=== PATIENT | female | born 1965 | race Caucasian/White ===

== ENCOUNTER 2024-05-20 04:19 | Emergency (ER) | payer MEDICAID, SELFPAY ==
[2024-05-20 04:19] VITALS: BMI 44.8
--- NOTE | 2024-05-20 04:29 | XR_ITS ---
Examination: PA lateral chest 2 views Technique: Upright PA lateral chest 2 views Exam date and time: February 19, 2024 0435 hrs. Comparison June 20, 2023 Indications: Coughing beginning 5 days ago post antibiotic therapy worse today Findings: Mild pneumonia left base Right lung clear Intact osseous structures Impression: Mild pneumonia left base
--- NOTE | 2024-05-20 04:29 | PD.EDRME ---
Rapid Medical Screening Exam RME Arrival date/time: 05/20/24 04:19 58 year old female present to Ed for c/o of Flu like sx. I have greeted and performed a focused initial assessment of this patient. A comprehensive ED assessment and evaluation of the patient, analysis of all test results, and completion of the medical decision making process will be conducted by additional ED providers. Chief Complaint: Flu Like Symptoms Time Seen by Provider: 05/20/24 04:22
[2024-05-20 04:55] VITALS: BP 140/89; PULSE 86; RESP 18; TEMP 37.9; O2SAT 95
[2024-05-20 05:45] LABS: Basophils % (Auto) 0 % (0-2.5); Eosinophils % (Auto) 1 % (0-10); Hematocrit 39.3 % (36.0-46.0); Immature Granulocytes % (Auto) 0 % (0-0); Immature Granulocytes Auto 0.01 Thou/mm3 (0.00-0.00); Lymphocytes # (Auto) 1.9 Thou/mm3 (1.0-4.8); Lymphocytes % (Auto) 45 % (10-50); Mean Corpuscular HGB Conc 33.1 g/dl (31.0-37.0); Mean Corpuscular Hemoglobin 31.9 pg (25.0-35.0); Mean Corpuscular Volume 97 fL (80-100); Monocytes # (Auto) 0.4 Thou/mm3 (0.0-0.8); Monocytes % (Auto) 10 % (0-12); Neutrophils # (Auto) 1.8 Thou/mm3 (1.8-7.7); Neutrophils % (Auto) 44 % (37-80); Nucleated Red Blood Cell % 0 /100 WBC (0); Platelet Count 151 Thou/mm3 (140-440); RDW Standard Deviation 49.1 fL (36.4-46.3); Red Blood Count 4.07 Miln/mm3 (4.00-5.20); White Blood Count 4.2 Thou/mm3 (3.6-11.0)
[2024-05-20 06:06] VITALS: BP 160/90; PULSE 78; RESP 17; TEMP 36.9; O2SAT 96
[2024-05-20 06:09] LABS: Alanine Aminotransferase 17 U/L (10-49); Albumin, Serum 4.4 gm/dL (3.5-5.0); Albumin/Globulin Ratio 2.2 (1.2-2.2); Alkaline Phosphatase 112 U/L (46-116); Anion Gap 7 (7-16); Aspartate Amino Transferase 18 U/L (0-34); BUN/Creatinine Ratio 16 Ratio (12-20); Bilirubin,Total 0.3 mg/dL (0.3-1.2); Blood Urea Nitrogen 13 mg/dL (9-23); Calcium 9.4 mg/dL (8.3-10.6); Calcium (Corrected) 9.4 mg/dL (8.5-10.1); Carbon Dioxide 28.2 mMol/L (20.0-31.0); Chloride 108 mMol/L (98-107); Creatinine (Component) 0.8 mg/dL (0.6-1.3); Estimated Creatinine Clearance 92.4 mL/min (>60); Glucose 107 mg/dL (74-106); Osmolality,Calculated 285 (275-295); Potassium 3.5 mMol/L (3.4-5.1); Sodium 143 mMol/L (136-145); Total Protein 6.4 gm/dL (5.7-8.2); eGFR > 60 See Note
--- NOTE | 2024-05-20 07:36 | EDNOTE_ITS ---
ED General RME/HPI General Chief complaint: Flu Like Symptoms Stated complaint: COUGHING Time Seen by Provider: 05/20/24 04:22 Arrival date/time: 05/20/24 04:19 RME / HPI RME / HPI narrative: 05/20/24 04:19 58 year old female present to Ed for c/o of Flu like sx. I have greeted and performed a focused initial assessment of this patient. A comprehensive ED assessment and evaluation of the patient, analysis of all test results, and completion of the medical decision making process will be conducted by additional ED providers. 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 Being on suppressive chemotherapy she has been advised by her oncologist to be cautious and have laboratories and chest x-ray is done anytime she is ill. She has a history of bronchospasms of which she is unable to take albuterol as it causes psychiatric changes. She has taken steroids without issue. She is currently not on steroids or prednisone she denies sick contacts. She is not vaccinated for the flu this year. She does not have contact with cattle or poultry industry. She does not consume raw meats or unpasteurized milk. Related Data Home Medications ?Medication ?Instructions ?Recorded ?Confirmed metoprolol tartrate 25 mg tablet 12.5 mg PO BID 08/02/18 05/04/23 atovaquone 750 mg/5 mL oral 1,500 mg PO QDAY 06/15/22 05/04/23 suspension pantoprazole 40 mg tablet,delayed 40 mg PO QDAY 06/15/22 05/04/23 release acyclovir 400 mg tablet 400 mg PO DAILY 05/04/23 05/04/23 apixaban 5 mg tablet (Eliquis) 5 mg PO BID 05/04/23 05/04/23 cholecalciferol (vitamin D3) 50 50 mcg PO QDAY 05/04/23 05/04/23 mcg (2,000 unit) tablet (Vitamin D3) diphenhydramine HCl 25 mg capsule 25 mg PO Q4H PRN Itching 05/04/23 05/04/23 (Banophen) flecainide 50 mg tablet 50 mg PO DAILY 05/04/23 05/04/23 levetiracetam 500 mg tablet 500 mg PO HS 05/04/23 05/04/23 lisinopril 20 mg tablet 20 mg PO DAILY 05/04/23 05/04/23 meclizine 25 mg tablet 25 mg PO BID PRN Dizziness 05/04/23 05/04/23 ondansetron HCl 8 mg tablet 8 mg PO Q8H PRN Vomiting 05/04/23 05/04/23 ponatinib 15 mg tablet (Iclusig) 15 mg PO DAILY 05/04/23 05/04/23 Previous Rx's ?Medication ?Instructions ?Recorded enoxaparin 150 mg/mL subcutaneous 150 mg subcut QDAY 30 days #30 mL 05/05/23 syringe amoxicillin 875 mg-potassium 1 tab PO Q12H #14 tabs 05/20/24 clavulanate 125 mg tablet doxycycline monohydrate 100 mg 100 mg PO BID #14 caps 05/20/24 capsule fluticasone propionate 50 2 spray intranasal QDAY #16 grams 05/20/24 mcg/actuation nasal spray,suspension (Flonase Allergy Relief) prednisone 50 mg tablet 50 mg PO QDAY #3 tabs 05/20/24 Allergies Allergy/AdvReac Type Severity Reaction Status Date / Time cefpodoxime Allergy Intermediate Difficulty Verified 06/20/23 11:44 Breathing dexamethasone Allergy Intermediate Difficulty Verified 06/20/23 11:44 Breathing diltiazem Allergy Intermediate Difficulty Verified 06/20/23 11:44 Breathing meperidine [From Demerol] Allergy Intermediate Difficulty Verified 06/20/23 11:44 Breathing morphine Allergy Intermediate Difficulty Verified 06/20/23 11:44 Breathing Sulfa (Sulfonamide Allergy Intermediate Rash Verified 06/20/23 11:44 Antibiotics) Review of Systems Review of Systems Systems Reviewed: All systems reviewed, normal except as documented ED Exam Narrative Physical exam: GENERAL APPEARANCE: AxOx4, generally well-appearing, no acute distress. HEENT: NC, AT. MMM. EOMI, clear conjunctiva, oropharynx clear. NECK: Supple without lymphadenopathy. No stiffness or restricted ROM. HEART: Normal rate and regular rhythm, normal S1/S1, no m/r/g LUNGS: moving air well. End expiratory wheezes in all lung morrissey, with coarse rhonchi, no rales ABDOMEN: Soft, nontender, nondistended with good bowel sounds heard. BACK: No midline C/T/L spine pain or deformity, No CVAT, no obvious deformity. EXTREMITIES: Without cyanosis, clubbing or edema. MUSCULOSKELETAL: FROM of all major joints, no chest tenderness NEUROLOGICAL: Grossly nonfocal. Alert and oriented, moving all 4 extremities. CN not formally tested but appear grossly intact. Observed to ambulate with normal gait. Skin: Warm and dry without any rash. Course Quality Measures none Orders Category Date Time Status Bedside COVID-19 Antigen Test NOW Care 05/20/24 04:28 Completed Bedside Influenza A&B Antigen Test NOW Care 05/20/24 04:28 Completed XR chest 2V Stat Exams 05/20/24 04:29 Completed CBC Stat Lab 05/20/24 05:34 Completed CMP [Comprehensive Metabolic Panel] Stat Lab 05/20/24 05:34 Completed Vital Signs Vital signs: Vital Signs Temperature 100.2 F 05/20/24 04:55 Pulse Rate 86 05/20/24 04:55 Respiratory Rate 18 05/20/24 04:55 Blood Pressure 140/89 H 05/20/24 04:55 Pulse Oximetry (%) 95 05/20/24 04:55 Oxygen Delivery Method Room Air 05/20/24 04:55 SpO2 95% on room air, not hypoxic MDM Patient data External records reviewed:: [facility] previous records Clinical information provided by:: patient Social determinants that could affect healthcare access:: none Patient has the following chronic illnesses:: AL L in remission, reactive airway disease How is presenting disease/condition affected by chronic disease/condition?: e xacerbated by Evaluation data The following diagnostics were reviewed and interpreted by me:: lab results and radiology exam(s) Lab and/or radiology exams considered but not ordered:: None Interpretation Summary: As per narrative Medications Medications considered but not ordered:: None Medication administrations:: None Consultations Consultation(s) initiated? (list below): No Diagnosis Differential Diagnosis ED Complaint MDM: Acute bronchitis, influenza, pneumonia Most likely diagnosis given after review of the tests above:: See below Admission Indicated Admission indicated?: not indicated Explain why admission is indicated or not indicated:: As per narrative Admission Request Was there a request for admission?: No Disposition Plan Disposition Plan: Discharge Discharge Attestation Discharge Attestation: The patient and all family members were given an opportunity to ask questions and understood the discharge instructions. Discharge instructions specifically effects, indications for sooner follow up or return to the emergency department, and the expected course of current diagnosis. Patient condition: Stable Medical Decision Making MDM Narrative MDM Narrative: Mrs. Bower presents to the emergency department symptoms consistent with an influenza-like illness and is outside the window for Tamiflu treatment. Here she appears to be more affected by bronchospasms of which she is unable to take albuterol or bronchodilator 4. She says she can appropriately take steroids which we will prescribe her here today. Laboratory testing and chest x-ray were sent via the [facility] process. Chest x-ray my interpretation shows no acute cardiopulmonary findings, no cardiomegaly, no bony abnormalities. Radiology interpretation suspects a subtle infiltrate, however I feel this fits bit more of a viral picture. However given she is on immunosuppressants, we will cover her empirically with dual coverage antibiotics, Augmentin/doxycycline. I have given her strict return precautions on bronchospastic management, and signs of sepsis. She is otherwise pleasant, without respiratory distress or abnormal vital signs, she is appropriate for outpatient treatment and close follow-up. Differential Diagnosis Differential Diagnosis: Acute bronchitis, influenza, pneumonia Lab Data 05/20/24 05:34 05/20/24 05:34 Labs: Lab Results 05/20/24 Range/Units 05:34 WBC 4.2 (3.6-11.0) Thou/mm3 RBC 4.07 (4.00-5.20) Miln/mm3 Hgb 13.0 (12.0-16.0) g/dL Hct 39.3 (36.0-46.0) % MCV 97 (80-100) fL MCH 31.9 (25.0-35.0) pg MCHC 33.1 (31.0-37.0) g/dl RDW Std Deviation 49.1 H (36.4-46.3) fL Plt Count 151 (140-440) Thou/mm3 Neut % (Auto) 44 (37-80) % Lymph % (Auto) 45 (10-50) % Calvert % (Auto) 10 (0-12) % Eos % (Auto) 1 (0-10) % Baso % (Auto) 0 (0-2.5) % Neut # (Auto) 1.8 (1.8-7.7) Thou/mm3 Lymph # (Auto) 1.9 (1.0-4.8) Thou/mm3 Calvert # (Auto) 0.4 (0.0-0.8) Thou/mm3 Eos # (Auto) 0.0 (0.0-0.5) Thou/mm3 Baso # (Auto) 0.0 (0.0-0.2) Thou/mm3 Immature Gran # (Auto) 0.01 H (0.00-0.00) Thou/mm3 Absolute Nucleated RBC 0.00 (0.00-0.00) Thou/mm3 Immature Gran % 0 (0-0) % Nucleated RBC % 0 (0) /100 WBC Sodium 143 (136-145) mMol/L Potassium 3.5 (3.4-5.1) mMol/L Chloride 108 H (98-107) mMol/L Carbon Dioxide 28.2 (20.0-31.0) mMol/L Anion Gap 7 (7-16) BUN 13 (9-23) mg/dL Creatinine 0.8 (0.6-1.3) mg/dL Estim Creat Clear Calc 92.4 (>60) mL/min eGFR > 60 (60 - ) See Note BUN/Creatinine Ratio 16 (12-20) Ratio Glucose 107 H (74-106) mg/dL Calculated Osmolality 285 (275-295) Calcium 9.4 (8.3-10.6) mg/dL Corrected Calcium 9.4 (8.5-10.1) mg/dL Total Bilirubin 0.3 (0.3-1.2) mg/dL AST 18 (0-34) U/L ALT 17 (10-49) U/L Alkaline Phosphatase 112 (46-116) U/L Total Protein 6.4 (5.7-8.2) gm/dL Albumin 4.4 (3.5-5.0) gm/dL Globulin 2.0 L (2.3-3.5) gm/dL Albumin/Globulin Ratio 2.2 (1.2-2.2) Discharge Plan Plan Patient Disposition: HOME (Self Care) Prescriptions/Referrals Prescriptions/Med Rec: New doxycycline monohydrate 100 mg capsule 100 mg PO BID Qty: 14 0RF prednisone 50 mg tablet 50 mg PO QDAY Qty: 3 0RF amoxicillin-pot clavulanate 875-125 mg tablet 1 tab PO Q12H Qty: 14 0RF fluticasone propionate [Flonase Allergy Relief] 50 mcg/actuation spray,suspension 2 spray intranasal QDAY Qty: 16 0RF Rx Instructions: administer into each nostril No Action metoprolol tartrate 25 mg tablet 12.5 mg PO BID pantoprazole 40 mg Tablet,Delayed Release (Dr/Ec) 40 mg PO QDAY atovaquone 750 mg/5 mL Suspension 1,500 mg PO QDAY Rx Instructions: must administer with food, preferably a high-fat meal lisinopril 20 mg tablet 20 mg PO DAILY Patient Comments: TAKE 1 TABLET BY MOUTH EVERY DAY levetiracetam 500 mg tablet 500 mg PO HS Patient Comments: TAKE 1 TABLET BY MOUTH EVERY EVENING. acyclovir 400 mg tablet 400 mg PO DAILY Patient Comments: TAKE 1 TABLET BY MOUTH 2 TIMES A DAY. flecainide 50 mg tablet 50 mg PO DAILY Patient Comments: TAKE 1 TABLET BY MOUTH EVERY DAY Iclusig 15 mg tablet 15 mg PO DAILY Eliquis 5 mg tablet 5 mg PO BID Hold Instructions: Resume on 05/06/23. Patient Comments: TAKE 1 TABLET BY MOUTH TWICE A DAY ondansetron HCl 8 mg tablet 8 mg PO Q8H PRN (Reason: Vomiting) Patient Comments: TAKE 1 TABLET BY MOUTH EVERY 8 HOURS NEEDED FOR NAUSEA OR VOMITING. cholecalciferol (vitamin D3) [Vitamin D3] 50 mcg (2,000 unit) Tablet 50 mcg PO QDAY meclizine 25 mg tablet 25 mg PO BID PRN (Reason: Dizziness) Patient Comments: TAKE 1 TABLET BY MOUTH TWICE A DAY NEEDED FOR DIZZINESS diphenhydramine HCl [Banophen] 25 mg capsule 25 mg PO Q4H PRN (Reason: Itching) Patient Comments: TAKE 1 CAPSULE BY MOUTH EVERY 4 HOURS NEEDED FOR ITCHING OR SLEEP. MAX DAILY DOSE: 150 MG enoxaparin 150 mg/mL Syringe 150 mg subcut QDAY 30 Days Qty: 30 2RF Referrals: Rai Ramsay PA-C [Primary Care Provider] - In 1 week Problem List Clinical Impression: Bronchitis, RAD (reactive airway disease) Patient/Caregiver Discharge Instructions Education Materials: ED Bronchitis with Wheezing (Adult) Additional Instructions: Follow-up with your primary care doctor in 3 to 5 days for recheck. Use the steroid nasal sprays prescribed with each nostril for the next 7 to 10 days. You can return to the emergency department sooner symptoms worsen or if you notice any new or concerning issues. Print Language: Nepalese Stand Alone Forms: [employer] Award Info., Patient Portal Info Letter
[2024-05-20 07:46] VITALS: BP 156/99; PULSE 76; RESP 16; TEMP 36.8; O2SAT 97
== END 2024-05-20 07:47 | disposition home or self-care (01) ==
PROVIDERS: Physician Assistant; Emergency Provider Emergency Medicine; PCP Physician Assistant
DX: J18.9 Pneumonia, unspecified organism (principal); J45.909 Unspecified asthma, uncomplicated
CPT/HCPCS: 36415; 71046; 80053; 85025; 87400; 87811; 99283

== ENCOUNTER → 2024-08-15 | Outpatient (CLI) | payer MEDICAID, SELFPAY ==
--- NOTE | 2024-08-15 09:19 | XR_ITS ---
Examination:Left hip AP, lateral, AP pelvis 3 views Technique: Hip AP lateral, AP pelvis, 3 views Exam date and time:August 15, 2024 0939 hours INDICATIONS: Left hip pain several years FINDINGS: Moderate bilateral hip osteoarthritis No hip fractures or hip dislocations Bones the pelvis intact IMPRESSION: Moderate bilateral hip osteoarthritis.
--- NOTE | 2024-08-15 09:19 | XR_ITS ---
Examination: AP pelvis 3 views TECHNIQUE: AP BABIN LPO pelvis 3 views Exam date and time: August 15, 2024 0949 hours INDICATIONS: Sacroiliac pain years FINDINGS: Moderate bilateral sacroiliitis No fracture IMPRESSION: Moderate bilateral sacroiliitis
== END | disposition home or self-care (01) ==
LOC: SDIM 09:02
PROVIDERS: PCP Physician Assistant; Referring Provider Internal Medicine Rheumatology; Visit Provider Internal Medicine Rheumatology
DX: M46.1 Sacroiliitis, not elsewhere classified (principal); M16.0 Bilateral primary osteoarthritis of hip
CPT/HCPCS: 72190; 73502

== ENCOUNTER 2024-09-16 13:00 | Outpatient (RCR) | payer MEDICAID, SELFPAY ==
--- NOTE | 2024-09-02 13:36 | PT.OIERPT ---
PT OP Initial Eval Patient Information Outpatient Physical Therapy Treatment Date: 09/02/24 Visit Reasons: neck pain Medical Diagnosis: Neck Pain Treatment Dx #1: Neck Pain Start of Care: 09/02/24 Date of Onset: 6 months ago Smoking Status Smoking Status: Never smoker Initial Assessment Subjective: Pt is a 59 y/o female reports of chronic neck pain and UE numbness R>L worsening 6 months ago. Pt's most recent xray showed moderate DDD of the C5-C7 segments. Pt completed MRI but does not have the results. Pt has limitation with gripping, lifting, chores, self care, cooking, cleaning, overhead motions, and performing recreational activities Objective: C/S AROM: all motions are WFL except pain with end range in all plane BUE AROM: all motions are WFL BUE MMTs: grossly 3/5 Scapula MMTs: grossly 3/5 Palpation: TTP upper trape and levator scapulae Assessment: Pt demonstrate neck pain and UE weakness leading to difficulty with ADLs. Pt will attempt physical therapy if pain persist Pt will be refer back to provider for further consultation. Short Term and Capacity Planning Analyst Goals 1) Decrease neck pain to 2/10 in 6 wks to be able to sit more than 30 mins 2) Increase BUE AROM WNL in 6 wks to be able to perform overhead motions 3) Increase BUE MMTs grossly to 4-/5 in 6 wks to be able to perform recreational activities 4) Increase scapula MMTs grossly to 4-/5 in 6 wks to be able to perform lifting activities 5) Indep with HEP Treatment Plan 1) Manual Therapy 2) Therapeutic Activities 3) Therapeutic Exercises 4) Modalities (ice, heat, traction) Frequency and Duration: 2 x wk for 6 wks Certification Dates: 09/02/24 to 12/05/24 Procedure Charges OP PT Eval Mod Complex 30 minutes: Yes
--- NOTE | 2024-09-11 13:51 | PT.ODAYNRPT ---
PT Outpatient Daily Note OP Daily Note Outpatient Physical Therapy Treatment Date: 09/11/24 Visit Reasons: neck pain Subjective: Pt's neck pain is about the same. Pt mentioned she is dropping things at home. Objective: Please see flow chart for list of ther ex performed Assessment: difficulty with nerve floss due to pain, however, able to complete instructed reps Plan: Continue with PT Length of Time (minutes) of Treatment: 30 Minutes Procedure Charges MCL Initial 30 minutes: Yes
--- NOTE | 2024-09-16 15:15 | PT.ODAYNRPT ---
PT Outpatient Daily Note OP Daily Note Outpatient Physical Therapy Treatment Date: 09/16/24 Visit Reasons: neck pain Subjective: Pt's neck is better after stretching, however, still notice some numbness in the finger Objective: Please see flow chart for list of ther ex performed Assessment: tolerate exercises with minimal pain; decrease tension in the upper trape and levator scapulae Plan: Continue with PT Length of Time (minutes) of Treatment: 30 Minutes Procedure Charges Therapeutic Exercise 30 minutes: Yes
== END 2024-09-18 23:59 | disposition home or self-care (01) ==
LOC: CPTX 13:00
PROVIDERS: PCP Neurological Surgery; Referring Provider Neurological Surgery; Visit Provider Neurological Surgery
DX: M50.322 Other cervical disc degeneration at C5-C6 level (principal)
CPT/HCPCS: 97110; 97162

== ENCOUNTER 2024-10-10 13:00 | Outpatient (RCR) | payer MEDICAID, SELFPAY ==
--- NOTE | 2024-09-23 14:46 | PT.ODAYNRPT ---
PT Outpatient Daily Note OP Daily Note Outpatient Physical Therapy Treatment Date: 09/23/24 Visit Reasons: NECK PAIN Subjective: Pt's neck less stiff but still has pain with numbness in the arms. Objective: Please see flow chart for list of ther ex performed Assessment: minimal changes post PT session. Pt exhibit decrease upper trape and levator scapulae tension post PT session Plan: Continue with PT Length of Time (minutes) of Treatment: 30 Minutes Procedure Charges MCL Initial 30 minutes: Yes
--- NOTE | 2024-09-30 13:31 | PT.ODAYNRPT ---
PT Outpatient Daily Note OP Daily Note Outpatient Physical Therapy Treatment Date: 09/30/24 Visit Reasons: NECK PAIN Subjective: Pt doesn't feel much neck pain lately, however, has pain down the shoulder. Objective: Please see flow chart for list of ther ex performed Assessment: apply c/s traction today. Pt tolerate modality well. Minimal changes in radicular UE pain post treatment Plan: Continue with PT Length of Time (minutes) of Treatment: 30 Minutes Procedure Charges MCL Initial 30 minutes: Yes
--- NOTE | 2024-10-07 13:35 | PT.ODAYNRPT ---
PT Outpatient Daily Note OP Daily Note Outpatient Physical Therapy Treatment Date: 10/07/24 Visit Reasons: NECK PAIN Subjective: Pt is having a bad day today and prefers not to do traction. Pt feels more heat rash on the cheeks. Objective: Please see flow chart for list of ther ex performed Assessment: tolerate light stretches and nerve floss exercises today. No resistance and traction performed today per Pt's request Plan: Continue with PT Length of Time (minutes) of Treatment: 30 Minutes Procedure Charges MCL Initial 30 minutes: Yes
--- NOTE | 2024-10-10 14:23 | PT.ODAYNRPT ---
PT Outpatient Daily Note OP Daily Note Outpatient Physical Therapy Treatment Date: 10/10/24 Visit Reasons: NECK PAIN Subjective: Pt's cheek flush over night. Pt is anxious and nervous about her labs. Pt wasnts to move up her specialist's appt. Pt's neck feels okay and prefers no traction moving forward due to lying position Objective: Please see flow chart for list of ther ex performed Assessment: decrease neck pain post PT session. Cues to correct nerve floss exercise to get more c/s sidebending Plan: Continue with PT Length of Time (minutes) of Treatment: 30 Minutes Procedure Charges MCL Initial 30 minutes: Yes
== END 2024-10-19 23:59 | disposition home or self-care (01) ==
LOC: CPTX 13:00
PROVIDERS: PCP Neurological Surgery; Referring Provider Neurological Surgery; Visit Provider Neurological Surgery
DX: M50.322 Other cervical disc degeneration at C5-C6 level (principal)

== ENCOUNTER 2024-10-28 13:11 | Outpatient (RCR) | payer MEDICAID, SELFPAY ==
--- NOTE | 2024-10-28 13:28 | PT.ODS1RPT ---
PT OP Progress/Discharge Note Date of Service: 10/28/24 Progress Note/DC Note Progress Note/Discharge Note: DC Note Patient Information Visit Reasons: Neck pain Medical Diagnosis: Neck Pain Treatment Dx #1: Neck Pain Service Discharge Date: 10/28/24 Status Subjective: Pt's neck is not better since starting physical therapy. Pt continues to have dizziness and weakness in the arms. Due to symptoms Pt has limitation with gripping, lifitng, chores, self care, and performing recreational activities Objective: C/S AROM: all motions are WFL BUE AROM: all motions are WFL BUE MMTs: grossly 3+/5 Scapula MMTs: grossly 3+/5 Assessment: Pt demonstrate functional c/s mobility and UE strength, however, no change in overall pain or symptoms leading to difficulty with ADLs. Pt will no longer benefit from physical therapy due to minimal progress towards physical therapy goals. Pt was instructed on HEP last session and educated to continue exercises to maintain overall mobility. Pt performed all exercises safely, thank you for your referrals. Plan: D/C home with HEP and follow up with MD Procedure Charges Therapeutic Exercise 30 minutes: Yes
== END 2024-11-18 23:59 | disposition home or self-care (01) ==
LOC: CPTX 13:11
PROVIDERS: PCP Neurological Surgery; Referring Provider Neurological Surgery; Visit Provider Neurological Surgery
DX: M50.322 Other cervical disc degeneration at C5-C6 level (principal); G89.29 Other chronic pain
CPT/HCPCS: 97110

== ENCOUNTER → 2024-12-19 | Outpatient (CLI) | payer MEDICAID, SELFPAY ==
--- NOTE | 2024-12-19 12:00 | XR_ITS ---
Examination: Bone densitometry Date and time of exam:December 19, 2024 1230 hours INDICATIONS: Menopause age 50 vitamin D 5 years, leukemia diagnosis 2021 Technique: Lumbar spine and hip total bone mineralization values of an calculated. Peak reference and age match control results have been displayed. Findings: Lumbar spine total bone mineralization is1.144 gm/cm2. This is 0.9 standard deviations above peak reference. This is 2.1 standard deviations above age-matched controls. Hip total bone mineralization is 1.176 gm/cm2 This is 1.9 standard deviations above peak reference. This is 2.7 standard deviations above age-matched controls Impression: There is normal mineralization based on lumbar spine measurements. There is normal mineralization based on hip measurements
== END | disposition home or self-care (01) ==
LOC: CDIM 11:58
PROVIDERS: PCP Physician Assistant; Referring Provider Nurse Practitioner Family; Visit Provider Nurse Practitioner Family
DX: M85.80 Other specified disorders of bone density and structure, unspecified site (principal)
CPT/HCPCS: 77080

== ENCOUNTER 2024-12-27 11:39 | Emergency (ER) | payer MEDICAID, SELFPAY ==
[2024-12-27 11:49] VITALS: PULSE 101; RESP 16; O2SAT 95; BMI 46.6
[2024-12-27 11:59] VITALS: BP 139/101; PULSE 100; RESP 16; TEMP 36.9; O2SAT 99
--- NOTE | 2024-12-27 12:03 | PD.EDNV ---
Nausea/Vomit./Diarrhea-RME/HPI General Chief complaint: Nausea/Vomiting/Diarrhea Stated complaint: N/V Time Seen by Provider: 12/27/24 11:46 Arrival date/time: 12/27/24 11:39 RME / HPI RME / HPI Narrative: DR. 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 Vomiting was non-bloody and non-bilious. She reports multiple episodes of loose stools but denies any blood in vomit or stools. Some associated abdominal pain noted. Related Data Home Medications ?Medication ?Instructions ?Recorded ?Confirmed metoprolol tartrate 25 mg tablet 12.5 mg PO BID 08/02/18 05/04/23 atovaquone 750 mg/5 mL oral 1,500 mg PO QDAY 06/15/22 05/04/23 suspension pantoprazole 40 mg tablet,delayed 40 mg PO QDAY 06/15/22 05/04/23 release acyclovir 400 mg tablet 400 mg PO DAILY 05/04/23 05/04/23 apixaban 5 mg tablet (Eliquis) 5 mg PO BID 05/04/23 05/04/23 Held on 05/04/23. Instructions: Resume on 05/06/23. cholecalciferol (vitamin D3) 50 50 mcg PO QDAY 05/04/23 05/04/23 mcg (2,000 unit) tablet (Vitamin D3) diphenhydramine HCl 25 mg capsule 25 mg PO Q4H PRN Itching 05/04/23 05/04/23 (Banophen) flecainide 50 mg tablet 50 mg PO DAILY 05/04/23 05/04/23 levetiracetam 500 mg tablet 500 mg PO HS 05/04/23 05/04/23 lisinopril 20 mg tablet 20 mg PO DAILY 05/04/23 05/04/23 meclizine 25 mg tablet 25 mg PO BID PRN Dizziness 05/04/23 05/04/23 ondansetron HCl 8 mg tablet 8 mg PO Q8H PRN Vomiting 05/04/23 05/04/23 ponatinib 15 mg tablet (Iclusig) 15 mg PO DAILY 05/04/23 05/04/23 Previous Rx's ?Medication ?Instructions ?Recorded enoxaparin 150 mg/mL subcutaneous 150 mg subcut QDAY 30 days #30 mL 05/05/23 syringe amoxicillin 875 mg-potassium 1 tab PO Q12H #14 tabs 05/20/24 clavulanate 125 mg tablet doxycycline monohydrate 100 mg 100 mg PO BID #14 caps 05/20/24 capsule fluticasone propionate 50 2 spray intranasal QDAY #16 grams 05/20/24 mcg/actuation nasal spray,suspension (Flonase Allergy Relief) prednisone 50 mg tablet 50 mg PO QDAY #3 tabs 05/20/24 Allergies Allergy/AdvReac Type Severity Reaction Status Date / Time cefpodoxime Allergy Intermediate Difficulty Verified 12/27/24 11:57 Breathing dexamethasone Allergy Intermediate Difficulty Verified 12/27/24 11:57 Breathing diltiazem Allergy Intermediate Difficulty Verified 12/27/24 11:57 Breathing meperidine (From Demerol) Allergy Intermediate Difficulty Verified 12/27/24 11:57 Breathing morphine Allergy Intermediate Difficulty Verified 12/27/24 11:57 Breathing Sulfa (Sulfonamide Allergy Intermediate Rash Verified 12/27/24 11:57 Antibiotics) Review of Systems Review of Systems Systems Reviewed: All systems reviewed, normal except as documented Past Medical History Past Medical History CARDIAC: Positive Atrial Fibrillation and Hypertension Social History SMOKING STATUS: Never smoker SUBSTANCE USE: does not use ALCOHOL: Never ED Exam Narrative Physical exam: GENERAL APPEARANCE: alert and oriented x 4, well-developed, well-nourished, no acute distress VITALS: All vitals were reviewed and the pulse ox is 99% on room air, which is normal according to my interpretation. HEENT: Normocephalic, atraumatic; pupils equal, round, reactive to light; EOMI; mucous membranes pink, moist; oropharynx clear NECK: Supple LUNGS: CTABL; no wheezes, no rales, no rhonchi HEART: Regular rate, regular rhythm; normal S1, S2; no murmurs ABDOMEN: non distended; normal BS; soft, no tenderness, no guarding, no rebound; no masses, no organomegaly, no hernia BACK: no CVA tenderness EXTREMITIES: atraumatic; no edema NEUROLOGIC: awake; alert and oriented x4; cranial nerves II-XII grossly intact; no focal sensory or motor deficits PSYCHIATRIC: appropriate mood and affect SKIN: warm, dry, normal color; no rashes Course Quality Measures none Orders Category Date Time Status Fish Filleter NOW Care 12/27/24 12:16 Active EKG (ED ONLY) *Do not use* NOW Care 12/27/24 12:16 Completed EKG (ED Only) Stat Exams 12/27/24 12:16 Draft XR abdomen series w chest 1V Stat Exams 12/27/24 12:17 Completed B-Type Natriuretic Peptide Stat Lab 12/27/24 12:45 Completed CBC Stat Lab 12/27/24 12:45 Completed Comprehensive Metabolic Panel Stat Lab 12/27/24 12:45 Completed Lipase Stat Lab 12/27/24 12:45 Completed Magnesium Stat Lab 12/27/24 12:45 Completed Partial Thromboplastin Time Stat Lab 12/27/24 12:45 Completed Prothrombin Time with INR Stat Lab 12/27/24 12:45 Completed Troponin I Stat Lab 12/27/24 12:45 Completed UA, C/S IF [Urinalysis, C/S if Indicated] Stat Lab 12/27/24 16:10 Completed Ondansetron Inj [Zofran Inj] Med 12/27/24 13:07 Discontinued 4 mg IVP X1 ONE Ondansetron Inj [Zofran Inj] Med 12/27/24 18:03 Discontinued 4 mg IVP X1 ONE Sodium Chloride 0.9% 1000 ml [Ns] 1,000 ml Med 12/27/24 12:17 Discontinued IV 999 mls/hr Sodium Chloride 0.9% 1000 ml [Ns] 1,000 ml Med 12/27/24 14:21 Discontinued IV 999 mls/hr Vital Signs Vital signs: Vital Signs Temperature 98.4 F 12/27/24 11:59 Pulse Rate 100 12/27/24 11:59 Respiratory Rate 16 12/27/24 11:59 Blood Pressure 139/101 H 12/27/24 11:59 Pulse Oximetry (%) 99 12/27/24 11:59 Oxygen Delivery Method Room Air 12/27/24 11:59 Nausea/Vomiting/Diarrhea MDM Narrative MDM Narrative:: I, Bibi Diaz am scribing for and in the presence of Dr. Larson. 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, currently undergoing chemotherapy), and cholecystectomy (2022) How is presenting disease/condition affected by chronic disease/condition?: exacerbated by Evaluation data The following diagnostics were reviewed and interpreted by me:: lab results, radiology exam(s) and EKG tracing(s) (My interpretation: EKG performed at 1506 hours, sinus rhythm, rate 78, mild artifact, flattening of ST segment in lead 3 and AVF) Lab and/or radiology exams considered but not ordered:: none Interpretation Summary: Procedure(s): XR abdomen series w chest 1V Accession Number(s): [id number] cc: Alfredo Deleon MD; Brooke Larson MD; RAI RIOS~ Examination: Abdominal series 3 views including upright PA chest TECHNIQUE: Upright PA chest, AP upright AP supine abdomen 3 views Date and time: January 06, 2025 1334 hours INDICATIONS: Vomiting diarrhea beginning last night. FINDINGS: Mild small bowel ileus No bowel obstruction No free air The osseous structures are intact Normal heart size lungs are clear IMPRESSION: Mild small bowel ileus Dictated By: Alfredo Deleon MD Medications / Prescriptions Medications / Prescriptions considered but not ordered:: none Medication administrations:: Medication Administration History Discontinued Medications Sodium Chloride (Ns) 1,000 mls @ 999 mls/hr IV .Q1H1M ONE Stop: 12/27/24 13:17 Last Infusion: 12/27/24 14:59 Dose: Infused Documented By: Admin: 12/27/24 13:00 Dose: 999 mls/hr Documented By: BARRON Sodium Chloride (Ns) 1,000 mls @ 999 mls/hr IV .Q1H1M ONE Stop: 12/27/24 15:21 Last Admin: 12/27/24 15:05 Dose: 999 mls/hr Documented By: BARRON Ondansetron HCl (Ondansetron Inj 2 Mg/Ml Inj 2 Ml) 4 mg IVP X1 ONE; Protocol Stop: 12/27/24 13:08 Last Admin: 12/27/24 13:28 Dose: 4 mg Documented By: BARRON Ondansetron HCl (Ondansetron Inj 2 Mg/Ml Inj 2 Ml) 4 mg IVP X1 ONE; Protocol Stop: 12/27/24 18:04 see above Consultations Consultation(s) initiated? (list below): No Diagnosis Nausea Differential Diagnosis: other (gastroenteritis, chemotherapy-related GI side effects, C. difficile infection) Most likely diagnosis given after review of the tests above:: Ileus, unspecified Admission Indicated Admission indicated?: not indicated Admission Request Was there a request for admission?: No Disposition Plan Disposition Plan: Discharge Discharge Attestation Discharge Attestation: The patient and all family members were given an opportunity to ask questions and understood the discharge instructions. Discharge instructions specifically effects, indications for sooner follow up or return to the emergency department, and the expected course of current diagnosis. Patient condition: Stable Discharge Plan Plan Patient Disposition: HOME (Self Care) Prescriptions/Referrals Prescriptions/Med Rec: No Action metoprolol tartrate 25 mg tablet 12.5 mg PO BID pantoprazole 40 mg Tablet,Delayed Release (Dr/Ec) 40 mg PO QDAY atovaquone 750 mg/5 mL Suspension 1,500 mg PO QDAY Rx Instructions: must administer with food, preferably a high-fat meal lisinopril 20 mg tablet 20 mg PO DAILY Patient Comments: TAKE 1 TABLET BY MOUTH EVERY DAY levetiracetam 500 mg tablet 500 mg PO HS Patient Comments: TAKE 1 TABLET BY MOUTH EVERY EVENING. acyclovir 400 mg tablet 400 mg PO DAILY Patient Comments: TAKE 1 TABLET BY MOUTH 2 TIMES A DAY. flecainide 50 mg tablet 50 mg PO DAILY Patient Comments: TAKE 1 TABLET BY MOUTH EVERY DAY Iclusig 15 mg tablet 15 mg PO DAILY Eliquis 5 mg tablet 5 mg PO BID Patient Comments: TAKE 1 TABLET BY MOUTH TWICE A DAY ondansetron HCl 8 mg tablet 8 mg PO Q8H PRN (Reason: Vomiting) Patient Comments: TAKE 1 TABLET BY MOUTH EVERY 8 HOURS NEEDED FOR NAUSEA OR VOMITING. cholecalciferol (vitamin D3) [Vitamin D3] 50 mcg (2,000 unit) Tablet 50 mcg PO QDAY meclizine 25 mg tablet 25 mg PO BID PRN (Reason: Dizziness) Patient Comments: TAKE 1 TABLET BY MOUTH TWICE A DAY NEEDED FOR DIZZINESS diphenhydramine HCl [Banophen] 25 mg capsule 25 mg PO Q4H PRN (Reason: Itching) Patient Comments: TAKE 1 CAPSULE BY MOUTH EVERY 4 HOURS NEEDED FOR ITCHING OR SLEEP. MAX DAILY DOSE: 150 MG enoxaparin 150 mg/mL Syringe 150 mg subcut QDAY 30 Days Qty: 30 2RF doxycycline monohydrate 100 mg capsule 100 mg PO BID Qty: 14 0RF prednisone 50 mg tablet 50 mg PO QDAY Qty: 3 0RF amoxicillin-pot clavulanate 875-125 mg tablet 1 tab PO Q12H Qty: 14 0RF fluticasone propionate [Flonase Allergy Relief] 50 mcg/actuation spray,suspension 2 spray intranasal QDAY Qty: 16 0RF Rx Instructions: administer into each nostril Referrals: Rai Rios PA-C [Primary Care Provider] - In 1 week Problem List Clinical Impression: Ileus, unspecified Patient/Caregiver Discharge Instructions Education Materials: Ileus Print Language: Tajik Stand Alone Forms: Awa Award Info., Patient Portal Info Letter
--- NOTE | 2024-12-27 12:16 | EKG_ITS ---
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
--- NOTE | 2024-12-27 12:17 | XR_ITS ---
Examination: Abdominal series 3 views including upright PA chest TECHNIQUE: Upright PA chest, AP upright AP supine abdomen 3 views Date and time: January 06, 2025 1334 hours INDICATIONS: Vomiting diarrhea beginning last night. FINDINGS: Mild small bowel ileus No bowel obstruction No free air The osseous structures are intact Normal heart size lungs are clear IMPRESSION: Mild small bowel ileus
[2024-12-27] MEDS: SODIUM CHLORIDE 0.9% 1000 ML 1,000 ML 999 ML IV ×2 (13:00→15:05)
[2024-12-27 13:07] LABS: Basophils # (Auto) 0.0 Thou/mm3 (0.0-0.2); Basophils % (Auto) 0 % (0-2.5); Eosinophils # (Auto) 0.0 Thou/mm3 (0.0-0.5); Eosinophils % (Auto) 0 % (0-10); Hematocrit 44.1 % (36.0-46.0); Hemoglobin 15.0 g/dL (12.0-16.0); Immature Granulocytes Auto 0.03 Thou/mm3 (0.00-0.00); Lymphocytes # (Auto) 0.9 Thou/mm3 (1.0-4.8); Lymphocytes % (Auto) 10 % (10-50); Mean Corpuscular HGB Conc 34.0 g/dl (31.0-37.0); Mean Corpuscular Hemoglobin 32.4 pg (25.0-35.0); Mean Corpuscular Volume 95 fL (80-100); Monocytes # (Auto) 0.4 Thou/mm3 (0.0-0.8); Monocytes % (Auto) 5 % (0-12); Neutrophils # (Auto) 7.7 Thou/mm3 (1.8-7.7); Neutrophils % (Auto) 85 % (37-80); Nucleated Red Blood Cell # 0.00 Thou/mm3 (0.00-0.00); Nucleated Red Blood Cell % 0 /100 WBC (0); Platelet Count 233 Thou/mm3 (140-440); RDW Standard Deviation 46.0 fL (36.4-46.3); Red Blood Count 4.63 Miln/mm3 (4.00-5.20); White Blood Count 9.0 Thou/mm3 (3.6-11.0)
[2024-12-27 13:25] LABS: B-Type Natriuretic Peptide 49 pg/mL (0-100); INR 1.0 (0.9-1.3); Partial Thromboplastin Time 28.2 Seconds (22.0-36.0); Prothrombin Time 11.1 Seconds (9.0-12.2)
[2024-12-27] MEDS: ONDANSETRON INJ 2 MG/ML INJ 2 ML 4 MG IVP ×2 (13:28→18:41)
[2024-12-27 13:38] LABS: Alanine Aminotransferase 9 U/L (10-49); Albumin, Serum 4.7 gm/dL (3.5-5.0); Albumin/Globulin Ratio 2.2 (1.2-2.2); Alkaline Phosphatase 123 U/L (46-116); Anion Gap 11 (7-16); Aspartate Amino Transferase 16 U/L (0-34); BUN/Creatinine Ratio 21 Ratio (12-20); Bilirubin,Total 0.6 mg/dL (0.3-1.2); Blood Urea Nitrogen 17 mg/dL (9-23); Calcium 8.9 mg/dL (8.3-10.6); Calcium (Corrected) 8.9 mg/dL (8.5-10.1); Carbon Dioxide 25.2 mMol/L (20.0-31.0); Chloride 107 mMol/L (98-107); Creatinine (Component) 0.8 mg/dL (0.6-1.3); Estimated Creatinine Clearance 93.5 mL/min (>60); Globulin 2.1 gm/dL (2.3-3.5); Glucose 115 mg/dL (74-106); Lipase 28 U/L (12-53); Magnesium 2.0 mg/dL (1.6-2.6); Osmolality,Calculated 287 (275-295); Potassium 3.7 mMol/L (3.4-5.1); Sodium 143 mMol/L (136-145); Total Protein 6.8 gm/dL (5.7-8.2); Troponin I < 0.020 ng/mL (0.0-0.045); eGFR > 60 See Note
[2024-12-27 15:29] VITALS: BP 122/66; PULSE 76; RESP 18; TEMP 37; O2SAT 97
[2024-12-27 15:39] VITALS: PULSE 78
[2024-12-27 16:18] LABS: Collection Type, Urine Clean Catch
[2024-12-27 16:23] LABS: Bacteria,Urine Rare; Bilirubin,Urine Negative (Negative); Blood,Urine Trace (Negative); Clarity,Urine Clear (Clear/Hazy); Color,Urine Lt-Yellow (Lt Yel-Yel); Culture Indicated,Urine Not Indicated; Glucose, Urine Negative (Negative); Ketones,Urine Negative (Negative); Leukocyte Esterase,Urine Negative (Negative); Nitrite,Urine Negative (Negative); PH,Urine 6.0 (5.0-7.0); Protein,Urine Trace (Neg - Trace); RBC,Urine 4 /hpf (0-3); Specific Gravity,Urine 1.028 (1.001-1.035); Squamous Epithelial Cell,Urine 4 /hpf (0-5); Urobilinogen,Urine Negative mg/dL (0.0-1.0); WBC,Urine 1 /hpf (0-5)
[2024-12-27 18:17] VITALS: BP 141/93; PULSE 77; RESP 17; TEMP 36.9; O2SAT 98
[2024-12-27] MEDS: HYDROmorphone INJ 2 MG/ML VIAL 0.5 MG IVP (18:42)
== END 2024-12-27 19:18 | disposition home or self-care (01) ==
PROVIDERS: Emergency Provider Emergency Medicine; PCP Physician Assistant
DX: K56.7 Ileus, unspecified (principal); R94.31 Abnormal electrocardiogram [ECG] [EKG]; I48.91 Unspecified atrial fibrillation; I10 Essential (primary) hypertension
CPT/HCPCS: 36415; 74022; 80053; 81001; 83690; 83735; 83880; 84484; 85025; 85610; 85730; 93005; 96361; 96374; 96375; 96376; 99284; J1171; J2405; J7030

== ENCOUNTER → 2025-01-06 | Outpatient (CLI) | payer MEDICAID, SELFPAY ==
--- NOTE | 2025-01-06 14:31 | XR_ITS ---
Examination: Screening digital mammography, bilateral Computer aided detection 3-D breast Tomosynthesis, bilateral Date and time of exam: January 06, 2025 1435 hours Comparison made to mammograms dating to March 15, 2017 Indication: Screening Technique: Nonmagnified MLO, CC views of the breasts to been obtained, reconstructed from 3-D Tomosynthesis images. R2 computer aided detection program utilized for evaluation of suspicious masses and/or abnormal calcifications. 3-D Tomosynthesis images obtained. Findings: Scattered areas of fibroglandular density. Benign calcifications. No interval suspicious masses Impression: BI-RADS category II: Benign Findings. Recommend 1 year follow-up mammogram.
== END | disposition home or self-care (01) ==
PROVIDERS: Referring Provider Physician Assistant; Visit Provider Physician Assistant
DX: Z12.31 Encounter for screening mammogram for malignant neoplasm of breast (principal); R92.323 Mammographic fibroglandular density, bilateral breasts; R92.1 Mammographic calcification found on diagnostic imaging of breast
CPT/HCPCS: 77063; 77067

== ENCOUNTER → 2025-04-07 | Outpatient (CLI) | payer MEDICAID, SELFPAY ==
--- NOTE | 2025-04-07 10:00 | XR_ITS ---
Examination: CT abdomen, without intravenous contrast. CT abdomen, with intravenous contrast. Sagittal and coronal 2-D reconstructions. Time of exam: April 07, 2025, 1314 hours INDICATIONS: Diagnosis leukemia, diagnosis family history of malignant neoplasm of digestive organs CTDI: vol (mGy) 35.4 DLP: (mGycm) 1229 Technique: Multiple 3.0 mm axial noncontrast images of the abdomen have been obtained. Multiple 3.0 mm axial images post administration 60 cc Isovue-370 intravenous contrast have been obtained. Sagittal and coronal 3-D reconstructions have been obtained. Low dose protocols were performed. One or more of the following dose reduction techniques were used; automated exposure control, adjustment of the mA and/or KV according to patient size, use of iterative reconstruction technique. Findings: No visualized liver or splenic lesion Absent gallbladder No biliary tract dilatation No pancreatic mass No renal or ureteral calculi, no hydronephrosis Abdominal aortic calcification no aneurysm dilatation No ascites No pathologic abdominal lymphadenopathy IMPRESSION: No focal liver or splenic lesion No extrahepatic biliary tract dilatation Normal pancreas No renal or ureteral calculi
== END | disposition home or self-care (01) ==
LOC: SCAT 09:55
PROVIDERS: PCP Physician Assistant; Referring Provider Nurse Practitioner Family; Visit Provider Nurse Practitioner Family
DX: K56.7 Ileus, unspecified (principal); Z80.0 Family history of malignant neoplasm of digestive organs
CPT/HCPCS: 74170; A4649; Q9967

== ENCOUNTER 2025-05-13 08:31 | Emergency (ER) | payer MEDICAID, SELFPAY ==
[2025-05-13 08:41] VITALS: BP 170/114; BP 171/123; PULSE 79; RESP 19; TEMP 36.8; O2SAT 98; BMI 45.7
--- NOTE | 2025-05-13 08:45 | EKG_ITS ---
[facility] Test Date: 2025-05-13 Pat Name: YASMIN CASEY Department: Room: - Gender: Female Academic Dean: : 1965 Requested By: Junior Hampton (REAGAN) Order Number: [id number] Reading MD: Junior Hampton ([employer]FET[employer]IA TEAM LEADER) Measurements Intervals [place] Rate: 66 P: 37 MO: 164 QRS: 69 QRSD: 85 T: 43 QT: 373 QTc: 391 Interpretive Statements SINUS RHYTHM LOW QRS VOLTAGE IN PRECORDIAL LEADS [QRS DEFLECTION < 1.0 mV IN CHEST LEADS] Compared to ECG 12/27/2024 15:06:18 No significant changes /store/S0/[id number].pdf
--- NOTE | 2025-05-13 08:45 | PD.EDRME ---
Rapid Medical Screening Exam RME Arrival date/time: 05/13/25 08:31 59-year-old female history of leukemia presents to the Emergency Department for complaints of epigastric abdominal pain and back pain. Chief Complaint: Abdominal Pain Vital signs: Vital Signs Temperature 98.3 F 05/13/25 08:41 Pulse Rate 79 05/13/25 08:41 Respiratory Rate 19 05/13/25 08:41 Blood Pressure 171/123 H 05/13/25 08:41 Pulse Oximetry (%) 98 05/13/25 08:41 Oxygen Delivery Method Room Air 05/13/25 08:41 Vital signs reviewed by provider: Yes Exam: On exam patient well-appearing does not appear ill or toxic Clinical Impression: Lab work and imaging obtained EKG obtained
[2025-05-13 09:22] LABS: Basophils # (Auto) 0.0 Thou/mm3 (0.0-0.2); Basophils % (Auto) 0 % (0-2.5); Eosinophils # (Auto) 0.1 Thou/mm3 (0.0-0.5); Eosinophils % (Auto) 1 % (0-10); Hematocrit 40.8 % (36.0-46.0); Hemoglobin 13.8 g/dL (12.0-16.0); Immature Granulocytes Auto 0.04 Thou/mm3 (0.00-0.00); Lymphocytes # (Auto) 1.8 Thou/mm3 (1.0-4.8); Lymphocytes % (Auto) 29 % (10-50); Mean Corpuscular HGB Conc 33.8 g/dl (31.0-37.0); Mean Corpuscular Hemoglobin 32.4 pg (25.0-35.0); Mean Corpuscular Volume 96 fL (80-100); Monocytes # (Auto) 0.5 Thou/mm3 (0.0-0.8); Monocytes % (Auto) 8 % (0-12); Neutrophils # (Auto) 3.8 Thou/mm3 (1.8-7.7); Neutrophils % (Auto) 61 % (37-80); Nucleated Red Blood Cell # 0.00 Thou/mm3 (0.00-0.00); Nucleated Red Blood Cell % 0 /100 WBC (0); Platelet Count 206 Thou/mm3 (140-440); RDW Standard Deviation 45.0 fL (36.4-46.3); Red Blood Count 4.26 Miln/mm3 (4.00-5.20); White Blood Count 6.2 Thou/mm3 (3.6-11.0)
[2025-05-13 09:34] LABS: Alanine Aminotransferase 25 U/L (10-49); Albumin, Serum 4.7 gm/dL (3.5-5.0); Albumin/Globulin Ratio 2.0 (1.2-2.2); Alkaline Phosphatase 127 U/L (46-116); Anion Gap 8 (7-16); Aspartate Amino Transferase 21 U/L (0-34); BUN/Creatinine Ratio 14 Ratio (12-20); Bilirubin,Total 0.5 mg/dL (0.3-1.2); Blood Urea Nitrogen 11 mg/dL (9-23); Calcium 9.3 mg/dL (8.3-10.6); Calcium (Corrected) 9.3 mg/dL (8.5-10.1); Carbon Dioxide 29.1 mMol/L (20.0-31.0); Chloride 108 mMol/L (98-107); Creatinine (Component) 0.8 mg/dL (0.6-1.3); Estimated Creatinine Clearance 92.4 mL/min (>60); Globulin 2.4 gm/dL (2.3-3.5); Glucose 115 mg/dL (74-106); Lipase 34 U/L (12-53); Osmolality,Calculated 289 (275-295); Potassium 4.3 mMol/L (3.4-5.1); Sodium 145 mMol/L (136-145); Total Protein 7.1 gm/dL (5.7-8.2); Troponin I < 0.002 ng/mL (0.0-0.045); eGFR > 60 See Note
--- NOTE | 2025-05-13 09:51 | XR_ITS ---
Examination: CT abdomen and pelvis without contrast. Coronal 3-D reconstructions. Sagittal 2-D reconstructions. Date and time of exam: May 13, 2025, 10:24 a.m. INDICATION: Right-sided flank pain beginning 2 days ago COMPARISON: April 07, 2025 CTDI: vol (mGy): 15.4 DLP: (mGycm): 918 Technique: Axial images of the abdomen have been obtained, 3 mm slice thickness Intravenous contrast material has not been administered. Low dose protocols were performed. One or more of the following dose reduction techniques were used; automated exposure control, adjustment of the mA and/or KV according to patient size, use of iterative reconstruction technique. Findings: No visualized liver or splenic lesion Absent gallbladder No pancreatic or adrenal mass Mild renal scar formation No renal or ureteral calculi, no hydronephrosis Aorta normal size Normal appendix Umbilical hernia, 3.6 cm containing small bowel but no incarcerated bowel Colonic diverticulosis Small areas of uterine fibroid calcification Urinary bladder intact IMPRESSION: Mild renal scar formation No renal or ureteral calculi, no hydronephrosis Normal appendix 3.6 cm umbilical hernia containing small bowel but no incarcerated bowel or bowel obstruction
--- NOTE | 2025-05-13 09:52 | XR_ITS ---
EXAMINATION: PA chest single view TECHNIQUE: Upright PA chest single view Date and time: May 13, 2025, 1025 hours, comparison December 27, 2024 INDICATIONS: Coughing beginning 3 days ago. FINDINGS: Normal heart size Lungs are clear. Intact osseous structures IMPRESSION: No active disease
[2025-05-13 10:00] VITALS: PULSE 74; PULSE 78; RESP 16; RESP 20; O2SAT 98
[2025-05-13] MEDS: SODIUM CHLORIDE 0.9% 1000 ML 1,000 ML 999 ML IV (10:11)
[2025-05-13] MEDS: ACETAMINOPHEN IVPB 1,000 MG/100 ML VIAL 250 MG IV (10:12)
--- NOTE | 2025-05-13 10:48 | PD.EDABDPN ---
ED Abdominal Pain RME/HPI General Chief Complaint: Abdominal Pain Stated complaint: ABDOMINAL PAIN AND UPPER BACK, ON CHEMO H/O CA Time seen by provider: 05/13/25 09:23 Arrival date/time: 05/13/25 08:31 Limitations: no limitations RME / HPI RME / HPI narrative: 05/13/25 08:31 59-year-old female history of leukemia presents to the Emergency Department for complaints of epigastric abdominal pain and back pain. DR. 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 The pain is described as aching in sensation, rating 8/10 in severity. Reports taking Tylenol last night with very minimal relief. No other known modifying or aggravating factors. Denies fevers, chills, chest pain, cough, shortness of breath, n/v/d, or urinary symptoms. Exam: On exam patient well-appearing does not appear ill or toxic Impression: Lab work and imaging obtained EKG obtained Related Data Home Medications ?Medication ?Instructions ?Recorded ?Confirmed metoprolol tartrate 25 mg tablet 12.5 mg PO BID 08/02/18 05/04/23 atovaquone 750 mg/5 mL oral 1,500 mg PO QDAY 06/15/22 05/04/23 suspension pantoprazole 40 mg tablet,delayed 40 mg PO QDAY 06/15/22 05/04/23 release acyclovir 400 mg tablet 400 mg PO DAILY 05/04/23 05/04/23 apixaban 5 mg tablet (Eliquis) 5 mg PO BID 05/04/23 05/04/23 Held on 05/04/23. Instructions: Resume on 05/06/23. cholecalciferol (vitamin D3) 50 50 mcg PO QDAY 05/04/23 05/04/23 mcg (2,000 unit) tablet (Vitamin D3) diphenhydramine HCl 25 mg capsule 25 mg PO Q4H PRN Itching 05/04/23 05/04/23 (Banophen) flecainide 50 mg tablet 50 mg PO DAILY 05/04/23 05/04/23 levetiracetam 500 mg tablet 500 mg PO HS 05/04/23 05/04/23 lisinopril 20 mg tablet 20 mg PO DAILY 05/04/23 05/04/23 meclizine 25 mg tablet 25 mg PO BID PRN Dizziness 05/04/23 05/04/23 ondansetron HCl 8 mg tablet 8 mg PO Q8H PRN Vomiting 05/04/23 05/04/23 ponatinib 15 mg tablet (Iclusig) 15 mg PO DAILY 05/04/23 05/04/23 Previous Rx's ?Medication ?Instructions ?Recorded enoxaparin 150 mg/mL subcutaneous 150 mg subcut QDAY 30 days #30 mL 05/05/23 syringe amoxicillin 875 mg-potassium 1 tab PO Q12H #14 tabs 05/20/24 clavulanate 125 mg tablet doxycycline monohydrate 100 mg 100 mg PO BID #14 caps 05/20/24 capsule fluticasone propionate 50 2 spray intranasal QDAY #16 grams 05/20/24 mcg/actuation nasal spray,suspension (Flonase Allergy Relief) prednisone 50 mg tablet 50 mg PO QDAY #3 tabs 05/20/24 Allergies Allergy/AdvReac Type Severity Reaction Status Date / Time cefpodoxime Allergy Intermediate Difficulty Verified 05/13/25 08:34 Breathing dexamethasone Allergy Intermediate Difficulty Verified 05/13/25 08:34 Breathing diltiazem Allergy Intermediate Difficulty Verified 05/13/25 08:34 Breathing meperidine (From Demerol) Allergy Intermediate Difficulty Verified 05/13/25 08:34 Breathing Sulfa (Sulfonamide Allergy Intermediate Rash Verified 05/13/25 08:34 Antibiotics) morphine Allergy Verified 05/13/25 08:34 morphine Allergy Intermediate Anaphylaxis Uncoded 05/13/25 08:34 Review of Systems Review of Systems Systems Reviewed: All systems reviewed, normal except as documented Past Medical History Past Medical History CARDIAC: Positive Atrial Fibrillation and Hypertension Social History SMOKING STATUS: Never smoker SUBSTANCE USE: does not use ED Exam General Limitations: Present no limitations General appearance: Present alert, obese and other (mild distress due to pain ) Head Head exam: Present atraumatic, normocephalic and normal inspection Eye Eye exam: Present normal appearance, PERRL and EOMI ENT ENT exam: Present normal exam, normal oropharynx and mucous membranes moist Neck Neck exam: Present normal inspection, full ROM and trachea midline Chest Chest inspection: Present normal inspection and symmetric chest wall rise Respiratory Respiratory exam: Present normal lung sounds bilaterally Cardiovascular Cardiovascular exam: Present regular rate, normal rhythm and normal heart sounds Abdominal Exam Abdominal exam: Present soft and normal bowel sounds; Absent distention, tenderness, guarding, rebound or rigidity Extremities Exam Extremities exam: Present normal inspection and full ROM Back Exam Back exam: Present full ROM and other (Right flank with myospasm on palpation, otherwise normal abdominal exam ); Absent CVA tenderness (R) or CVA tenderness (L) Neurological Exam Neurological exam: Present alert, oriented X3 and CN II-XII intact Psychiatric Psychiatric exam: Present normal affect and normal mood Skin Skin exam: Present warm, dry, intact and normal color Course Quality Measures none Orders Category Date Time Status [employer] NOW Care 05/13/25 09:52 Completed Continuous Pulse Oximetry NOW Care 05/13/25 09:52 Completed EKG (ED ONLY) *Do not use* NOW Care 05/13/25 08:45 Completed Insert IV NOW Care 05/13/25 09:[address] abdomen pelvis wo con Stat Exams 05/13/25 09:51 Completed EKG (ED Only) Stat Exams 05/13/25 08:45 Draft XR cervical spine 4-5V Stat Exams 05/13/25 11:32 Completed XR chest 1V portable Stat Exams 05/13/25 09:52 Completed XR lumbar spine min 4V Stat Exams 05/13/25 11:32 Completed CBC Stat Lab 05/13/25 09:05 Completed Comprehensive Metabolic Panel Stat Lab 05/13/25 09:05 Completed Lipase Stat Lab 05/13/25 09:05 Completed Troponin I Stat Lab 05/13/25 09:05 Completed UA, C/S IF [Urinalysis, C/S if Indicated] Stat Lab 05/13/25 08:45 Completed Urine Culture Stat Lab 05/13/25 11:45 Received Acetaminophen Ivpb [Ofirmev Inj] Med 05/13/25 09:53 Discontinued 1,000 mg in 100 ml IV X1 Sodium Chloride 0.9% 1000 ml [Ns] 1,000 ml Med 05/13/25 09:52 Discontinued IV 999 mls/hr Oxygen Delivery NOW RT 05/13/25 09:52 Completed Vital Signs Vital signs: Vital Signs Temperature 98.3 F 05/13/25 08:41 Pulse Rate 79 05/13/25 08:41 Respiratory Rate 19 05/13/25 08:41 Blood Pressure 171/123 H 05/13/25 08:41 Pulse Oximetry (%) 98 05/13/25 08:41 Oxygen Delivery Method Room Air 05/13/25 08:41 Pulse ox is 98% on room air which is adequate. Abdominal Pain MDM MDM Narrative MDM Narrative:: Joanne Coleman am scribing for and in the presence of Dr. Nunes. Patient data External records reviewed:: [facility] previous records Clinical information provided by:: patient Social determinants that could affect healthcare access:: none Patient has the following chronic illnesses:: atrial fibrillation, acute lymphoblastic leukemia (diagnosed February 2022, currently undergoing chemotherapy) How is presenting disease/condition affected by chronic disease/condition?: exacerbated by Evaluation data The following diagnostics were reviewed and interpreted by me:: lab results, radiology exam(s) and EKG tracing(s) (EKG @ 08:52am, interpreted by me, normal sinus rhythm, rate 66, no STEMI. ) Lab and/or radiology exams considered but not ordered:: None Interpretation Summary: Ordering Physician: Brian Nunes MD Date of Service: 05/13/25 Procedure(s): CT abdomen pelvis wo con Accession Number(s): [id number] cc: Brian Nunes MD; Alfredo Deleon MD~ Examination: CT abdomen and pelvis without contrast. Coronal 3-D reconstructions. Sagittal 2-D reconstructions. Date and time of exam: May 13, 2025, 10:24 a.m. INDICATION: Right-sided flank pain beginning 2 days ago COMPARISON: April 07, 2025 CTDI: vol (mGy): 15.4 DLP: (mGycm): 918 Technique: Axial images of the abdomen have been obtained, 3 mm slice thickness Intravenous contrast material has not been administered. Low dose protocols were performed. One or more of the following dose reduction techniques were used; automated exposure control, adjustment of the mA and/or KV according to patient size, use of iterative reconstruction technique. Findings: No visualized liver or splenic lesion Absent gallbladder No pancreatic or adrenal mass Mild renal scar formation No renal or ureteral calculi, no hydronephrosis Aorta normal size Normal appendix Umbilical hernia, 3.6 cm containing small bowel but no incarcerated bowel Colonic diverticulosis Small areas of uterine fibroid calcification Urinary bladder intact IMPRESSION: Mild renal scar formation No renal or ureteral calculi, no hydronephrosis Normal appendix 3.6 cm umbilical hernia containing small bowel but no incarcerated bowel or bowel obstruction Dictated By: Alfredo Deleon MD Signed By: <Electronically signed by Alfredo Deleon MD in OV> 05/13/25 1046 Ordering Physician: Brian Nunes MD Date of Service: 05/13/25 Procedure(s): XR chest 1V portable Accession Number(s): [id number] cc: Brian Nunes MD; Alfredo Deleon MD~ EXAMINATION: PA chest single view TECHNIQUE: Upright PA chest single view Date and time: May 13, 2025, 1025 hours, comparison December 27, 2024 INDICATIONS: Coughing beginning 3 days ago. FINDINGS: Normal heart size Lungs are clear. Intact osseous structures IMPRESSION: No active disease Dictated By: Alfredo Deleon MD Signed By: <Electronically signed by Alfredo Deleon MD in OV> 05/13/25 1052 Ordering Physician: Brian Nunes MD Date of Service: 05/13/25 Procedure(s): XR cervical spine 4-5V Accession Number(s): [id number] cc: Brian Nunes MD; Alfredo Pelaez MD~ EXAMINATION: Cervical spine, 5 views Technique: Cervical spine AP, AP odontoid, lateral, bilateral obliques, 5 views Exam date and time: 05/13/2025 at 11:45 a.m. Comparison study: 11/13/2019 CLINICAL INDICATION: Neck pain radiating, for 3 days FINDINGS: There is mild-moderate degenerative disc space narrowing at C5-6 and C6-C7 the disc space narrowing at C6-C7 has increased very slightly since the previous comparison films there are osteophytes surrounding these narrow disc spaces on oblique views, there are large osteophytes involving the joints of Luschka on the right at C5-C6 markedly encroaching and narrowing the right neural foramen here. On the left side at this level there are also large osteophytes in the joint of Luschka creating moderately prominent indentation on the left neural foramen at C5-6. At C6-7, the joints of Luschka appear normal as do the neural foramen on both sides. In the upper two thirds of the cervical spine no abnormalities are noted IMPRESSION: 1. There is moderate degenerative disc space narrowing and surrounding osteophytes at C5-6 and C6-7. 2 there is major osteophyte formation involving the joints of Luschka on the right at C5-6 creating major narrowing of the right neural foramen. There are also large osteophytes on the left side creating moderate encroachment on the neuroforamen these findings probably do create compression on the the exiting nerve roots. Dictated By: Alfredo Peleaz MD Signed By: <Electronically signed by Alfredo Pelaez MD in OV> 05/13/25 1227 Ordering Physician: Brian Nunes MD Date of Service: 05/13/25 Procedure(s): XR lumbar spine min 4V Accession Number(s): [id number] cc: Brian Nunes MD; Alfredo Deleon MD~ Examination: Lumbar spine, 5 views Technique: Lumbar spine AP, lateral, coned lateral lower lumbar spine, bilateral obliques 5 views Exam date and time: May 13, 2025, 1143 hours INDICATIONS: Back pain beginning 3 days ago. FINDINGS: Grade 2 spondylolisthesis L5 on S1 Advanced degenerative disc disease at this level Prominent lumbar spondylosis Mild old compression T12 No acute lumbar fracture Intact pedicles IMPRESSION: Grade 2 spondylolisthesis L5 on S1 Advanced degenerative disc disease L5-S1 Dictated By: Alfredo Deleon MD Signed By: <Electronically signed by Alfredo Deleon MD in OV> 05/13/25 1222 Medications / Prescriptions Medications or Prescriptions considered but not ordered:: None Medication administrations:: Medication Administration History Discontinued Medications Sodium Chloride (Ns) 1,000 mls @ 999 mls/hr IV .Q1H1M ONE Stop: 05/13/25 10:52 Last Infusion: 05/13/25 11:34 Dose: Infused Documented By: Admin: 05/13/25 10:11 Dose: 999 mls/hr Documented By: ED Acetaminophen (Ofirmev Inj) 1,000 mg in 100 mls @ 250 mls/hr IV X1 ONE Stop: 05/13/25 10:16 Last Infusion: 05/13/25 11:34 Dose: Infused Documented By: Admin: 05/13/25 10:12 Dose: 250 mls/hr Documented By: ED See above Consultations Consultation(s) initiated? (list below): No Diagnosis Differential diagnosis abdominal pain: abdominal pain, calculus of kidney, diverticulitis and gastroenteritis Most likely diagnosis given after review of the tests above:: Musculoskeletal back pain Admission Indicated Admission indicated?: not indicated Explain why admission is indicated or not indicated:: With no condition needing emergent intervention, there was no indication for admission. Admission Request Was there a request for admission?: No Disposition Plan Disposition Plan: Discharge Discharge Attestation Discharge Attestation: The patient and all family members were given an opportunity to ask questions and understood the discharge instructions. Discharge instructions specifically effects, indications for sooner follow up or return to the emergency department, and the expected course of current diagnosis. Patient condition: Stable Discharge Plan Plan Patient Disposition: HOME (Self Care) Patient condition on transfer: Stable Prescriptions/Referrals Prescriptions/Med Rec: No Action metoprolol tartrate 25 mg tablet 12.5 mg PO BID pantoprazole 40 mg Tablet,Delayed Release (Dr/Ec) 40 mg PO QDAY atovaquone 750 mg/5 mL Suspension 1,500 mg PO QDAY Rx Instructions: must administer with food, preferably a high-fat meal lisinopril 20 mg tablet 20 mg PO DAILY Patient Comments: TAKE 1 TABLET BY MOUTH EVERY DAY levetiracetam 500 mg tablet 500 mg PO HS Patient Comments: TAKE 1 TABLET BY MOUTH EVERY EVENING. acyclovir 400 mg tablet 400 mg PO DAILY Patient Comments: TAKE 1 TABLET BY MOUTH 2 TIMES A DAY. flecainide 50 mg tablet 50 mg PO DAILY Patient Comments: TAKE 1 TABLET BY MOUTH EVERY DAY Iclusig 15 mg tablet 15 mg PO DAILY Eliquis 5 mg tablet 5 mg PO BID Patient Comments: TAKE 1 TABLET BY MOUTH TWICE A DAY ondansetron HCl 8 mg tablet 8 mg PO Q8H PRN (Reason: Vomiting) Patient Comments: TAKE 1 TABLET BY MOUTH EVERY 8 HOURS NEEDED FOR NAUSEA OR VOMITING. cholecalciferol (vitamin D3) [Vitamin D3] 50 mcg (2,000 unit) Tablet 50 mcg PO QDAY meclizine 25 mg tablet 25 mg PO BID PRN (Reason: Dizziness) Patient Comments: TAKE 1 TABLET BY MOUTH TWICE A DAY NEEDED FOR DIZZINESS diphenhydramine HCl [Banophen] 25 mg capsule 25 mg PO Q4H PRN (Reason: Itching) Patient Comments: TAKE 1 CAPSULE BY MOUTH EVERY 4 HOURS NEEDED FOR ITCHING OR SLEEP. MAX DAILY DOSE: 150 MG enoxaparin 150 mg/mL Syringe 150 mg subcut QDAY 30 Days Qty: 30 2RF doxycycline monohydrate 100 mg capsule 100 mg PO BID Qty: 14 0RF prednisone 50 mg tablet 50 mg PO QDAY Qty: 3 0RF amoxicillin-pot clavulanate 875-125 mg tablet 1 tab PO Q12H Qty: 14 0RF fluticasone propionate [Flonase Allergy Relief] 50 mcg/actuation spray,suspension 2 spray intranasal QDAY Qty: 16 0RF Rx Instructions: administer into each nostril Problem List Clinical Impression: Musculoskeletal back pain Patient/Caregiver Discharge Instructions Discharge Activity: activity as tolerated Education Materials: ED Back Care Tips Additional Instructions: Take Tylenol 500 mg 1-2 tabs every 6 hours as needed for pain. Follow-up with your doctor in 2 to 3 days. Print Language: Divehi Stand Alone Forms: [employer] Award Info., Patient Portal Info Letter
--- NOTE | 2025-05-13 11:32 | XR_ITS ---
EXAMINATION: Cervical spine, 5 views Technique: Cervical spine AP, AP odontoid, lateral, bilateral obliques, 5 views Exam date and time: 05/13/2025 at 11:45 a.m. Comparison study: 11/13/2019 CLINICAL INDICATION: Neck pain radiating, for 3 days FINDINGS: There is mild-moderate degenerative disc space narrowing at C5-6 and C6-C7 the disc space narrowing at C6-C7 has increased very slightly since the previous comparison films there are osteophytes surrounding these narrow disc spaces on oblique views, there are large osteophytes involving the joints of Luschka on the right at C5-C6 markedly encroaching and narrowing the right neural foramen here. On the left side at this level there are also large osteophytes in the joint of Luschka creating moderately prominent indentation on the left neural foramen at C5-6. At C6-7, the joints of Luschka appear normal as do the neural foramen on both sides. In the upper two thirds of the cervical spine no abnormalities are noted IMPRESSION: 1. There is moderate degenerative disc space narrowing and surrounding osteophytes at C5-6 and C6-7. 2 there is major osteophyte formation involving the joints of Luschka on the right at C5-6 creating major narrowing of the right neural foramen. There are also large osteophytes on the left side creating moderate encroachment on the neuroforamen these findings probably do create compression on the the exiting nerve roots.
--- NOTE | 2025-05-13 11:32 | XR_ITS ---
Examination: Lumbar spine, 5 views Technique: Lumbar spine AP, lateral, coned lateral lower lumbar spine, bilateral obliques 5 views Exam date and time: May 13, 2025, 1143 hours INDICATIONS: Back pain beginning 3 days ago. FINDINGS: Grade 2 spondylolisthesis L5 on S1 Advanced degenerative disc disease at this level Prominent lumbar spondylosis Mild old compression T12 No acute lumbar fracture Intact pedicles IMPRESSION: Grade 2 spondylolisthesis L5 on S1 Advanced degenerative disc disease L5-S1
[2025-05-13 11:59] LABS: Collection Type, Urine Clean Catch
[2025-05-13 12:10] LABS: Bacteria,Urine 1+; Bilirubin,Urine Negative (Negative); Blood,Urine Negative (Negative); Clarity,Urine Clear (Clear/Hazy); Color,Urine Colorless (Lt Yel-Yel); Glucose, Urine Negative (Negative); Ketones,Urine Negative (Negative); Leukocyte Esterase,Urine Negative (Negative); Nitrite,Urine Negative (Negative); PH,Urine 6.5 (5.0-7.0); Protein,Urine Negative (Neg - Trace); RBC,Urine 1 /hpf (0-3); Specific Gravity,Urine 1.008 (1.001-1.035); Squamous Epithelial Cell,Urine < 1 /hpf (0-5); Urobilinogen,Urine Negative mg/dL (0.0-1.0); WBC,Urine < 1 /hpf (0-5)
[2025-05-13 12:12] VITALS: BP 152/85; PULSE 58; RESP 19; TEMP 36.5; O2SAT 99
[2025-05-13 12:27] LABS: Culture Indicated,Urine Yes
== END 2025-05-13 13:03 | disposition home or self-care (01) ==
LOC: SERX 12:53
PROVIDERS: Nurse Practitioner Primary Care; Emergency Provider Family Medicine
DX: M51.370 Other intervertebral disc degeneration, lumbosacral region with discogenic back pain only (principal); M50.322 Other cervical disc degeneration at C5-C6 level; M43.17 Spondylolisthesis, lumbosacral region; K42.9 Umbilical hernia without obstruction or gangrene; M25.78 Osteophyte, vertebrae; C91.00 Acute lymphoblastic leukemia not having achieved remission; I48.91 Unspecified atrial fibrillation; N28.89 Other specified disorders of kidney and ureter
CPT/HCPCS: 36415; 71045; 72050; 72110; 74176; 80053; 81001; 81025; 83690; 84484; 85025; 87077; 87086; 87186; 93005; 96365; 99285; J0131; J7030